=== PATIENT | female | born 1990 | race Caucasian/White ===

== ENCOUNTER → 2020-02-26 | Outpatient (CLI) | payer BC ==
[2020-02-26 06:55] LABS: BASOPHILS % (AUTO) 0.4 % (0-1); EOSINOPHILS # (AUTO) 0.1 X10'3 (0-0.9); EOSINOPHILS % (AUTO) 1.3 % (0-6); HEMOGLOBIN 12.4 g/dl (12.0-16.0); LYMPHOCYTES # (AUTO) 1.7 X10'3 (1.1-4.8); LYMPHOCYTES % (AUTO) 27.2 % (21-51); MEAN CORPUSCULAR HEMOGLOBIN 26.5 PG (27.0-31.0); MEAN CORPUSCULAR HGB CONC 32.5 g/dL (33.0-36.5); MEAN CORPUSCULAR VOLUME 81.4 FL (78-98); MEAN PLATELET VOLUME 7.9 FL (7.4-10.4); MONOCYTES # (AUTO) 0.4 X10'3 (0-0.9); MONOCYTES % (AUTO) 6.5 % (2-12); NEUTROPHILS % (AUTO) 64.6 % (42-75); PLATELET COUNT 323 X10'3 (140-440); RED BLOOD COUNT 4.67 X10'6 (4.20-5.60); RED CELL DISTRIBUTION WIDTH 14.5 % (11.5-14.5); WHITE BLOOD COUNT 6.2 X10'3 (4.5-11.0)
[2020-02-26 07:18] LABS: ALANINE AMINOTRANSFERASE 27 U/L (12-78); ALBUMIN 3.9 G/DL (3.4-5.0); ALKALINE PHOSPHATASE 62 IU/L (46-116); ANION GAP 8 (8-16); ASPARTATE AMINO TRANSFERASE 15 U/L (10-37); BILIRUBIN,TOTAL 0.3 MG/DL (0.1-1.0); BLOOD UREA NITROGEN 12 MG/DL (7-18); BUN/CREATININE RATIO 14.5 (6.6-38.0); CALCIUM 9.5 MG/DL (8.5-10.1); CHLORIDE 105 MMOL/L (99-107); CHOL/HDL RATIO 2.8 (0.00-4.99); CHOLESTEROL 169 MG/DL (0-200); CREATININE 0.83 MG/DL (0.40-0.90); GLUCOSE 112 MG/DL (70-104); HDL CHOLESTEROL 61 MG/DL (35-60); LDL CHOLESTEROL 89 MG/DL (50-100); POTASSIUM 3.8 MMOL/L (3.5-5.1); SODIUM 140 MMOL/L (135-145); TOTAL CARBON DIOXIDE 27.2 MMOL/L (24-32); TRIGLYCERIDES 95 MG/DL (20-135); eGFR 81 ML/MIN
[2020-02-26 13:59] LABS: CLARITY,URINE SLIGHTLY CLOUDY (Clear); COLOR,URINE YELLOW (Yellow); GLUCOSE, URINE NEGATIVE (Neg); KETONES,URINE TRACE mg/dl (Neg); LEUKOCYTE ESTERASE ,URINE NEGATIVE (Neg); NITRITES, URINE NEGATIVE (Neg); OCCULT BLOOD,URINE NEGATIVE (Neg); PROTEIN,URINE NEGATIVE (Neg); UROBILINOGEN,URINE 0.2 E.U/dL (0.2-1.0)
[2020-02-26 14:02] LABS: UA COLLECTION TYPE CLN CATCH MIDSTREAM
[2020-02-26 14:13] LABS: MUCUS STRANDS MANY /LPF (Neg); SQUAMOUS EPITHELIAL CELL,UR MANY /LPF (FEW); TRANSITIONAL EPI CELLS,URINE FEW /HPF
[2020-02-26 14:14] LABS: BACTERIA,URINE 2+ /HPF (Neg); RBC,URINE 0-2 /HPF (0-2); WBC,URINE 0-4 /HPF (0-4)
== END | disposition home or self-care (01) ==
LOC: LAB 05:48
PROVIDERS: ATTEND Family Medicine
DX: Z00.00 Encounter for general adult medical examination without abnormal findings (principal)
CPT/HCPCS: 36415; 80053; 80061; 81001; 84439; 84443; 85025

== ENCOUNTER 2020-03-17 09:24 | Emergency (ER) | payer BC ==
[~2020-03-17] VITALS: Ht 175.3 cm; Wt 100.0 kg
[2020-03-17 09:48] VITALS: BP 130/88
== END 2020-03-17 10:31 | disposition home or self-care (01) ==
LOC: ER 09:24
DX: R05 Cough (principal); J02.9 Acute pharyngitis, unspecified; M79.10 Myalgia, unspecified site; Z20.828 Contact with and (suspected) exposure to other viral communicable diseases; Z88.0 Allergy status to penicillin
CPT/HCPCS: 36415; 99283

== ENCOUNTER 2020-03-24 18:57 | Emergency (ER) | payer BC ==
[~2020-03-24] VITALS: Ht 175.3 cm; Wt 100.0 kg
[2020-03-24 19:13] VITALS: BP 130/88
[2020-03-24] MEDS ORDERED: ondansetron 4mg rapidly disintigrating tab PO ONE (19:25)
[2020-03-24] MEDS ORDERED: ibuprofen tablet 400 MG TABLET PO ONE (19:45)
[2020-03-24 20:15] LABS: CLARITY,URINE CLEAR (Clear); COLOR,URINE YELLOW (Yellow); GLUCOSE, URINE NEGATIVE (Neg); KETONES,URINE NEGATIVE (Neg); LEUKOCYTE ESTERASE ,URINE TRACE (Neg); NITRITES, URINE NEGATIVE (Neg); OCCULT BLOOD,URINE NEGATIVE (Neg); PROTEIN,URINE NEGATIVE (Neg); UROBILINOGEN,URINE 0.2 E.U/dL (0.2-1.0)
[2020-03-24 20:17] LABS: UA COLLECTION TYPE CLN CATCH MIDSTREAM
[2020-03-24 20:21] LABS: BACTERIA,URINE NONE SEEN /HPF (Neg); RBC,URINE NONE SEEN /HPF (0-2); SQUAMOUS EPITHELIAL CELL,UR FEW /LPF (FEW); WBC,URINE 0-4 /HPF (0-4)
[2020-03-24] MEDS ORDERED: AMOX-422 PO (20:22)
== END 2020-03-24 20:44 | disposition home or self-care (01) ==
LOC: ER 18:58
DX: J02.0 Streptococcal pharyngitis (principal); Z88.0 Allergy status to penicillin; Z88.8 Allergy status to other drugs, medicaments and biological substances
CPT/HCPCS: 81001; 87081; 87088; 87880; 99283

== ENCOUNTER 2020-07-28 17:18 | Emergency (ER) | payer BC, OTHER ==
[~2020-07-28] VITALS: Ht 177.8 cm; Wt 100.0 kg
[2020-07-28] MEDS ORDERED: AZIT500T PO (18:06)
[2020-07-28] MEDS ORDERED: ALBU6.7H9 INH (18:06)
[2020-07-28] MEDS ORDERED: PRED20TA PO (18:06)
[2020-07-28] MEDS ORDERED: BENZ-38 PO (18:06)
== END 2020-07-28 18:10 | disposition home or self-care (01) ==
LOC: ER 17:19
DX: U07.1 COVID-19 (principal); J40 Bronchitis, not specified as acute or chronic; B34.9 Viral infection, unspecified; R05 Cough; R07.89 Other chest pain; R06.02 Shortness of breath; Z88.0 Allergy status to penicillin; Z88.8 Allergy status to other drugs, medicaments and biological substances; Z79.2 Long term (current) use of antibiotics; Z79.899 Other long term (current) drug therapy
CPT/HCPCS: 71045; 99283

== ENCOUNTER 2020-08-10 08:14 | Outpatient (CLI) | payer BC ==
[~2020-08-10 08:14] MED LIST: ALBU6.7H9 INH; BENZ-38 PO
[2020-08-10 10:35] LABS: BASOPHILS % (AUTO) 0.4 % (0-1); EOSINOPHILS # (AUTO) 0.1 X10'3 (0-0.9); EOSINOPHILS % (AUTO) 1.4 % (0-6); HEMATOCRIT 37.9 % (35.0-45.0); HEMOGLOBIN 12.6 g/dl (12.0-16.0); LYMPHOCYTES # (AUTO) 1.8 X10'3 (1.1-4.8); LYMPHOCYTES % (AUTO) 26.1 % (21-51); MEAN CORPUSCULAR HEMOGLOBIN 26.8 PG (27.0-31.0); MEAN CORPUSCULAR HGB CONC 33.2 g/dL (33.0-36.5); MEAN CORPUSCULAR VOLUME 80.6 FL (78-98); MEAN PLATELET VOLUME 7.7 FL (7.4-10.4); MONOCYTES # (AUTO) 0.5 X10'3 (0-0.9); MONOCYTES % (AUTO) 7.1 % (2-12); NEUTROPHILS # (AUTO) 4.5 X10'3 (1.8-7.7); PLATELET COUNT 294 X10'3 (140-440); RED CELL DISTRIBUTION WIDTH 14.5 % (11.5-14.5)
[2020-08-10 11:06] LABS: HEMOGLOBIN A1C 5.6 % (4.5-6.2)
[2020-08-11 12:30] LABS: ESTRADIOL 37.8 pg/mL (.); FSH, SERUM 6.6 mIU/mL (.); PROLACTIN 9.1 ng/mL (4.8-23.3); RUBELLA ANTIBODIES, IGG 2.46 index (Immune >0.99)
== END 2020-08-10 23:59 | disposition home or self-care (01) ==
LOC: LAB 08:14
PROVIDERS: ATTEND Physician Assistant
DX: N92.4 Excessive bleeding in the premenopausal period (principal); N94.5 Secondary dysmenorrhea
CPT/HCPCS: 36415; 82670; 83001; 83002; 83036; 84146; 84402; 84403; 84439; 84443; 85025; 86762

== ENCOUNTER 2020-08-16 08:52 | Outpatient (CLI) | payer BC ==
[~2020-08-16 08:52] MED LIST changes: +iohexol 300mg/ml 100ml inj. ONE
== END 2020-08-16 23:59 | disposition home or self-care (01) ==
LOC: 64 CT 08:52 → EEVIPCON 08:52 → 64 CT 23:59
PROVIDERS: ATTEND Family Medicine
DX: R91.1 Solitary pulmonary nodule (principal); K76.0 Fatty (change of) liver, not elsewhere classified
CPT/HCPCS: 71260; Q9967

== ENCOUNTER 2021-01-27 10:15 | Outpatient (CLI) | payer BC ==
[~2021-01-27 10:15] MED LIST changes: -BENZ-38 PO; -iohexol 300mg/ml 100ml inj. ONE
== END 2021-01-27 23:59 | disposition home or self-care (01) ==
LOC: RAD 10:15
PROVIDERS: ATTEND Internal Medicine Critical Care Medicine
DX: R06.02 Shortness of breath (principal); R94.2 Abnormal results of pulmonary function studies
CPT/HCPCS: 78582; A9539; A9540

== ENCOUNTER 2021-03-01 10:44 | Emergency (ER) | payer BC ==
[~2021-03-01] VITALS: Ht 177.8 cm; Wt 106.4 kg
[2021-03-01] MEDS ORDERED: CEPH250T PO (13:52)
[2021-03-01] MEDS ORDERED: PRED20TA PO (13:52)
[2021-03-01] MEDS ORDERED: ALBU6.7H9 INH (13:52)
[2021-03-01 14:19] VITALS: BP 133/85
== END 2021-03-01 14:20 | disposition home or self-care (01) ==
LOC: ER 10:44 → EEVIPCON 10:44 → ER 14:20
DX: J40 Bronchitis, not specified as acute or chronic (principal); Z20.822 Contact with and (suspected) exposure to COVID-19; J02.9 Acute pharyngitis, unspecified; R05 Cough; R09.89 Other specified symptoms and signs involving the circulatory and respiratory systems; R53.83 Other fatigue; Z88.0 Allergy status to penicillin; Z88.8 Allergy status to other drugs, medicaments and biological substances; Z79.2 Long term (current) use of antibiotics; Z79.899 Other long term (current) drug therapy
CPT/HCPCS: 71045; 87081; 87635; 87880; 99284; C9803

== ENCOUNTER 2021-04-06 13:00 | Outpatient (CLI) | payer BC | END 2021-04-06 23:59 | disposition home or self-care (01) | LOC: RAD 13:00 | PROVIDERS: ATTEND Obstetrics & Gynecology | DX: N91.4 Secondary oligomenorrhea (principal) | CPT/HCPCS: 36415; 82670; 84144 ==

== ENCOUNTER 2021-04-24 10:35 | Emergency (ER) | payer BC ==
[~2021-04-24] VITALS: Ht 175.3 cm; Wt 75.0 kg
[2021-04-24] MEDS ORDERED: ONDA4TAB12 PO (10:56)
[2021-04-24 11:13] VITALS: BP 126/78
== END 2021-04-24 11:17 | disposition home or self-care (01) ==
LOC: ER 10:35
DX: R50.9 Fever, unspecified (principal); Z20.822 Contact with and (suspected) exposure to COVID-19; R11.2 Nausea with vomiting, unspecified; Z88.8 Allergy status to other drugs, medicaments and biological substances; Z79.899 Other long term (current) drug therapy
CPT/HCPCS: 99283

== ENCOUNTER 2021-10-21 18:32 | Emergency (ER) | payer BC ==
[~2021-10-21] VITALS: Ht 177.8 cm; Wt 107.2 kg
[~2021-10-21 18:32] MED LIST changes: +ONDA4TAB12 PO
[2021-10-21] MEDS ORDERED: ondansetron/PF 4mg/2ml inj IV ONE (19:55)
[2021-10-21] MEDS ORDERED: normal saline 1000ML IV soln IVB ONE (19:55)
[2021-10-21 21:15] VITALS: BP 128/90
[2021-10-21 21:46] LABS: BASOPHILS % (AUTO) 0.3 % (0-1); EOSINOPHILS # (AUTO) 0.1 X10'3 (0-0.9); EOSINOPHILS % (AUTO) 1.1 % (0-6); HEMATOCRIT 36.2 % (35.0-45.0); HEMOGLOBIN 12.1 g/dl (12.0-16.0); LYMPHOCYTES % (AUTO) 17.8 % (21-51); MEAN CORPUSCULAR HEMOGLOBIN 27.4 PG (27.0-31.0); MEAN CORPUSCULAR HGB CONC 33.5 g/dL (33.0-36.5); MEAN CORPUSCULAR VOLUME 81.8 FL (78-98); MEAN PLATELET VOLUME 8.2 FL (7.4-10.4); MONOCYTES # (AUTO) 0.6 X10'3 (0-0.9); MONOCYTES % (AUTO) 5.8 % (2-12); NEUTROPHILS # (AUTO) 8.2 X10'3 (1.8-7.7); PLATELET COUNT 264 X10'3 (140-440); RED BLOOD COUNT 4.42 X10'6 (4.20-5.60); RED CELL DISTRIBUTION WIDTH 14.8 % (11.5-14.5)
[2021-10-21 22:06] LABS: ALBUMIN 3.5 G/DL (3.4-5.0); ANION GAP 10 (8-16); BILIRUBIN,TOTAL 0.3 MG/DL (0.1-1.0); BLOOD UREA NITROGEN 11 MG/DL (7-18); BUN/CREATININE RATIO 13.3 (6.6-38.0); CALCIUM 8.3 MG/DL (8.5-10.1); CHLORIDE 106 MMOL/L (99-107); CREATININE 0.83 MG/DL (0.40-0.90); GLUCOSE 93 MG/DL (70-104); POTASSIUM 3.6 MMOL/L (3.5-5.1); SODIUM 142 MMOL/L (135-145); TOTAL CARBON DIOXIDE 25.7 MMOL/L (24-32); TOTAL PROTEIN 6.9 G/DL (6.4-8.2); eGFR 80 ML/MIN
[2021-10-21 22:07] LABS: ALANINE AMINOTRANSFERASE 82 U/L (12-78); ALKALINE PHOSPHATASE 75 IU/L (46-116); ASPARTATE AMINO TRANSFERASE 22 U/L (10-37)
[2021-10-21 22:35] LABS: BETA HCG,QUANTITATIVE 43452 mIU/ml
[2021-10-21] MEDS ORDERED: DOXY1TAB3 PO (22:47)
[2021-10-21] MEDS ORDERED: ONDA4TAB12 PO (22:47)
[2021-10-21 22:51] LABS: CLARITY,URINE SLIGHTLY CLOUDY (Clear); COLOR,URINE YELLOW (Yellow); GLUCOSE, URINE NEGATIVE (Neg); KETONES,URINE NEGATIVE (Neg); LEUKOCYTE ESTERASE ,URINE NEGATIVE (Neg); NITRITES, URINE NEGATIVE (Neg); OCCULT BLOOD,URINE TRACE-INTACT (Neg); PH,URINE 5.5 (4.8-8.0); PROTEIN,URINE NEGATIVE (Neg); UROBILINOGEN,URINE 0.2 E.U/dL (0.2-1.0)
[2021-10-21 22:57] LABS: UA COLLECTION TYPE VOIDED
[2021-10-21 22:59] LABS: BACTERIA,URINE 1+ /HPF (Neg); MUCUS STRANDS MODERATE /LPF (Neg); SQUAMOUS EPITHELIAL CELL,UR FEW /LPF (FEW); STARCH,URINE FEW /HPF (NEGATIVE); WBC,URINE NONE SEEN /HPF (0-4)
== END 2021-10-21 23:13 | disposition home or self-care (01) ==
LOC: ER 18:32 → EEVIPCON 18:32 → ER 23:13
DX: O99.611 Diseases of the digestive system complicating pregnancy, first trimester (principal); K29.00 Acute gastritis without bleeding; O21.9 Vomiting of pregnancy, unspecified; O34.11 Maternal care for benign tumor of corpus uteri, first trimester; Z88.0 Allergy status to penicillin; Z88.8 Allergy status to other drugs, medicaments and biological substances; Z79.899 Other long term (current) drug therapy; Z3A.01 Less than 8 weeks gestation of pregnancy
CPT/HCPCS: 36415; 76802; 76830; 80053; 81001; 84702; 85025; 85610; 86885; 86900; 86901; 99284; J7030

== ENCOUNTER 2021-10-24 07:33 | Emergency (ER) | payer BC ==
[~2021-10-24] VITALS: Ht 177.8 cm; Wt 105.9 kg
[~2021-10-24 07:33] MED LIST changes: +DOXY1TAB3 PO
[2021-10-24 07:40] VITALS: BP 128/71
--- NOTE | 2021-10-24 07:56 | NUR ---
Patient reports she was told by ER provider last week to return for beta HCG today.
[2021-10-24] MEDS ORDERED: metoclopramide 5 mg/ml inj IV ONE (08:20)
[2021-10-24] MEDS ORDERED: ringers solution, lacted 1,000 ML IV ONE (08:20)
[2021-10-24 08:46] LABS: BASOPHILS % (AUTO) 0.3 % (0-1); EOSINOPHILS # (AUTO) 0.1 X10'3 (0-0.9); EOSINOPHILS % (AUTO) 1.2 % (0-6); HEMATOCRIT 40.4 % (35.0-45.0); HEMOGLOBIN 13.7 g/dl (12.0-16.0); LYMPHOCYTES # (AUTO) 1.9 X10'3 (1.1-4.8); MEAN CORPUSCULAR HEMOGLOBIN 27.8 PG (27.0-31.0); MEAN CORPUSCULAR HGB CONC 33.9 g/dL (33.0-36.5); MEAN PLATELET VOLUME 7.9 FL (7.4-10.4); MONOCYTES # (AUTO) 0.6 X10'3 (0-0.9); MONOCYTES % (AUTO) 5.9 % (2-12); NEUTROPHILS # (AUTO) 7.3 X10'3 (1.8-7.7); NEUTROPHILS % (AUTO) 73.6 % (42-75); PLATELET COUNT 273 X10'3 (140-440); RED BLOOD COUNT 4.93 X10'6 (4.20-5.60); RED CELL DISTRIBUTION WIDTH 14.6 % (11.5-14.5)
--- NOTE | 2021-10-24 09:13 | NUR ---
Patient not in room; IV on counter in room.
[2021-10-24 11:49] LABS: ALANINE AMINOTRANSFERASE 89 U/L (12-78); ALBUMIN 3.7 G/DL (3.4-5.0); ALKALINE PHOSPHATASE 89 IU/L (46-116); ANION GAP 11 (8-16); ASPARTATE AMINO TRANSFERASE 33 U/L (10-37); BILIRUBIN,TOTAL 0.6 MG/DL (0.1-1.0); BLOOD UREA NITROGEN 10 MG/DL (7-18); BUN/CREATININE RATIO 13.2 (6.6-38.0); CHLORIDE 102 MMOL/L (99-107); CREATININE 0.76 MG/DL (0.40-0.90); GLUCOSE 95 MG/DL (70-104); SODIUM 138 MMOL/L (135-145); TOTAL CARBON DIOXIDE 24.9 MMOL/L (24-32); TOTAL PROTEIN 7.4 G/DL (6.4-8.2); eGFR 89 ML/MIN
[2021-10-24 12:19] LABS: BETA HCG,QUANTITATIVE 80633 mIU/ml
== END 2021-10-24 09:00 | disposition left against medical advice (07) ==
LOC: ER 07:34 → EEVIPCON 07:34 → ER 09:00
DX: O46.8X1 Other antepartum hemorrhage, first trimester (principal); O26.891 Other specified pregnancy related conditions, first trimester; R11.2 Nausea with vomiting, unspecified
CPT/HCPCS: 36415; 80053; 84702; 85025; 96361; 96374; 99283; J2765; J7120

== ENCOUNTER 2023-11-07 05:33 | Emergency (ER) | payer BC ==
[~2023-11-07] VITALS: Ht 177.8 cm; Wt 117.7 kg
[~2023-11-07 05:33] MED LIST changes: -ALBU6.7H9 INH
[2023-11-07] MEDS ORDERED: ketorolac trometh. 30mg/ml inj. IV ONE (06:45)
[2023-11-07 07:23] LABS: BASOPHILS % (AUTO) 0.4 % (0-1); EOSINOPHILS # (AUTO) 0.1 X10'3 (0-0.9); EOSINOPHILS % (AUTO) 1.3 % (0-6); HEMATOCRIT 38.9 % (35.0-45.0); HEMOGLOBIN 13.2 g/dl (12.0-16.0); LYMPHOCYTES # (AUTO) 1.1 X10'3 (1.1-4.8); LYMPHOCYTES % (AUTO) 15.3 % (21-51); MEAN CORPUSCULAR HEMOGLOBIN 27.3 PG (27.0-31.0); MEAN CORPUSCULAR HGB CONC 33.8 g/dL (33.0-36.5); MEAN CORPUSCULAR VOLUME 80.8 FL (78-98); MEAN PLATELET VOLUME 7.7 FL (7.4-10.4); MONOCYTES # (AUTO) 0.6 X10'3 (0-0.9); MONOCYTES % (AUTO) 7.7 % (2-12); NEUTROPHILS # (AUTO) 5.5 X10'3 (1.8-7.7); NEUTROPHILS % (AUTO) 75.3 % (42-75); PLATELET COUNT 279 X10'3 (140-440); RED BLOOD COUNT 4.81 X10'6 (4.20-5.60); RED CELL DISTRIBUTION WIDTH 14.4 % (11.5-14.5); WHITE BLOOD COUNT 7.3 X10'3 (4.5-11.0)
[2023-11-07 07:32] LABS: D-DIMER 0.81 MG/L FEU (0-0.50)
[2023-11-07 07:33] LABS: ALANINE AMINOTRANSFERASE 28 U/L (12-78); ALBUMIN 3.5 G/DL (3.4-5.0); ALBUMIN/GLOBULIN RATIO 0.9 (1.1-1.5); ALKALINE PHOSPHATASE 95 IU/L (46-116); ANION GAP 7 (8-16); ASPARTATE AMINO TRANSFERASE 18 U/L (10-37); BILIRUBIN,TOTAL 0.3 MG/DL (0.1-1.0); BLOOD UREA NITROGEN 15 MG/DL (7-18); BUN/CREATININE RATIO 16.9 (10.0-20.0); CALCIUM 8.1 MG/DL (8.5-10.1); CHLORIDE 105 MMOL/L (99-107); CREATININE 0.89 MG/DL (0.40-0.90); GLUCOSE 106 MG/DL (70-104); POTASSIUM 4.1 MMOL/L (3.5-5.1); SODIUM 139 MMOL/L (135-145); TOTAL CARBON DIOXIDE 27.1 MMOL/L (24-32); TOTAL PROTEIN 7.6 G/DL (6.4-8.2); eCRCL 97 ML/MIN; eGFR 73 ML/MIN
[2023-11-07 07:40] LABS: PRO BRAIN NATRIURETIC PEPTIDE < 30 PG/ML (0-125)
[2023-11-07 08:20] LABS: URINE HCG NEGATIVE (NEG)
[2023-11-07] MEDS ORDERED: iohexol 350MG/ML 100ml bottle IV ONE (08:22)
[2023-11-07] MEDS: ketorolac trometh. 30mg/ml inj. IV ONE (09:02)
[2023-11-07 09:50] VITALS: BP 118/83; PULSE 80; RESP 18; TEMP 98; O2SAT 95
== END 2023-11-07 09:52 | disposition home or self-care (01) ==
LOC: EEVIPCON 05:34 → ER 05:34
DX: R07.89 Other chest pain (principal); Z88.0 Allergy status to penicillin; Z88.8 Allergy status to other drugs, medicaments and biological substances; Z79.899 Other long term (current) drug therapy
CPT/HCPCS: 36415; 71045; 71275; 80053; 81025; 83880; 84484; 85025; 85379; 93005; 96374; 99285; J1885; J3490; Q9967

== ENCOUNTER 2023-11-20 10:03 | Outpatient (CLI) | payer BC ==
[2023-11-20 10:54] LABS: BASOPHILS % (AUTO) 0.3 % (0-1); EOSINOPHILS # (AUTO) 0.2 X10'3 (0-0.9); EOSINOPHILS % (AUTO) 1.6 % (0-6); HEMATOCRIT 40.8 % (35.0-45.0); HEMOGLOBIN 13.6 g/dl (12.0-16.0); LYMPHOCYTES # (AUTO) 1.9 X10'3 (1.1-4.8); LYMPHOCYTES % (AUTO) 20.4 % (21-51); MEAN CORPUSCULAR HGB CONC 33.4 g/dL (33.0-36.5); MEAN CORPUSCULAR VOLUME 81.1 FL (78-98); MEAN PLATELET VOLUME 7.8 FL (7.4-10.4); MONOCYTES # (AUTO) 0.5 X10'3 (0-0.9); MONOCYTES % (AUTO) 5.3 % (2-12); NEUTROPHILS # (AUTO) 6.8 X10'3 (1.8-7.7); NEUTROPHILS % (AUTO) 72.4 % (42-75); PLATELET COUNT 307 X10'3 (140-440); RED BLOOD COUNT 5.03 X10'6 (4.20-5.60); RED CELL DISTRIBUTION WIDTH 14.4 % (11.5-14.5); WHITE BLOOD COUNT 9.4 X10'3 (4.5-11.0)
== END 2023-11-20 23:59 | disposition home or self-care (01) ==
LOC: LAB 10:03
PROVIDERS: ATTEND Obstetrics & Gynecology
DX: D21.9 Benign neoplasm of connective and other soft tissue, unspecified (principal)
CPT/HCPCS: 36415; 85025; 86885; 86900; 86901

== ENCOUNTER 2024-02-24 03:48 | Emergency (ER) | payer BC ==
[~2024-02-24] VITALS: Ht 177.8 cm; Wt 107.0 kg
[2024-02-24 03:54] VITALS: BP 130/84; PULSE 109; O2SAT 95
[2024-02-24] MEDS ORDERED: NO HOME MEDS (04:06)
[2024-02-24 04:22] LABS: STREP A SCREEN POSITIVE (Neg)
[2024-02-24] MEDS: acetaminophen 325mg tablet PO ONE (04:22)
[2024-02-24] MEDS: LIDOcaine 2% Viscous 15ml cup MM ONE (04:23)
[2024-02-24 04:28] VITALS: RESP 18
[2024-02-24] MEDS: ketorolac trometh. 30mg/ml inj. IM ONE (04:28)
[2024-02-24] MEDS: clindamycin 150mg capsule PO ONE (04:39)
[2024-02-24] MEDS: dexamethasone 4mg tablet PO ONE (04:39)
[2024-02-24] MEDS ORDERED: PRE5T PO (04:41)
[2024-02-24] MEDS ORDERED: CLIN150C2 PO (04:41)
[2024-02-24] MEDS ORDERED: LIDO15SO9 PO (04:41)
[2024-02-24 04:46] VITALS: TEMP 98.8
== END 2024-02-24 04:45 | disposition home or self-care (01) ==
LOC: ER 03:48
DX: J02.0 Streptococcal pharyngitis (principal); Z88.0 Allergy status to penicillin; Z88.8 Allergy status to other drugs, medicaments and biological substances
CPT/HCPCS: 87880; 96372; 99284; J1885

== ENCOUNTER 2024-03-05 15:44 | Outpatient (CLI) | payer BC ==
[~2024-03-05 15:44] MED LIST changes: +CLIN150C2 PO; -DOXY1TAB3 PO; +LIDO15SO9 PO; +NO HOME MEDS; -ONDA4TAB12 PO; +PRE5T PO
[2024-03-05 16:34] LABS: BASOPHILS % (AUTO) 0.4 % (0-1); EOSINOPHILS # (AUTO) 0.1 X10'3 (0-0.9); EOSINOPHILS % (AUTO) 1.1 % (0-6); HEMATOCRIT 38.3 % (35.0-45.0); HEMOGLOBIN 12.6 g/dl (12.0-16.0); LYMPHOCYTES # (AUTO) 1.9 X10'3 (1.1-4.8); LYMPHOCYTES % (AUTO) 20.4 % (21-51); MEAN CORPUSCULAR HEMOGLOBIN 25.8 PG (27.0-31.0); MEAN CORPUSCULAR HGB CONC 32.8 g/dL (33.0-36.5); MEAN CORPUSCULAR VOLUME 78.8 FL (78-98); MEAN PLATELET VOLUME 8.2 FL (7.4-10.4); MONOCYTES # (AUTO) 0.5 X10'3 (0-0.9); MONOCYTES % (AUTO) 5.8 % (2-12); NEUTROPHILS # (AUTO) 6.8 X10'3 (1.8-7.7); NEUTROPHILS % (AUTO) 72.3 % (42-75); PLATELET COUNT 298 X10'3 (140-440); RED BLOOD COUNT 4.86 X10'6 (4.20-5.60); RED CELL DISTRIBUTION WIDTH 15.2 % (11.5-14.5); WHITE BLOOD COUNT 9.4 X10'3 (4.5-11.0)
[2024-03-05 16:42] LABS: D-DIMER 0.33 MG/L FEU (0-0.50)
[2024-03-05 16:52] LABS: HEMOGLOBIN A1C 5.4 % (4.5-6.2)
[2024-03-05 16:54] LABS: ALANINE AMINOTRANSFERASE 104 U/L (12-78); ALBUMIN 3.5 G/DL (3.4-5.0); ALBUMIN/GLOBULIN RATIO 0.8 (1.1-1.5); ALKALINE PHOSPHATASE 98 IU/L (46-116); ANION GAP 10 (8-16); ASPARTATE AMINO TRANSFERASE 35 U/L (10-37); BILIRUBIN,TOTAL 0.5 MG/DL (0.1-1.0); BLOOD UREA NITROGEN 14 MG/DL (7-18); BUN/CREATININE RATIO 16.1 (10.0-20.0); CALCIUM 9.1 MG/DL (8.5-10.1); CHLORIDE 102 MMOL/L (99-107); CREATININE 0.87 MG/DL (0.40-0.90); GLUCOSE 90 MG/DL (70-104); POTASSIUM 3.7 MMOL/L (3.5-5.1); SODIUM 139 MMOL/L (135-145); THYROID STIMULATING HORMONE 2.35 ulU/ml (0.34-4.50); TOTAL CARBON DIOXIDE 27.1 MMOL/L (24-32); TOTAL PROTEIN 7.9 G/DL (6.4-8.2); eGFR 75 ML/MIN
== END 2024-03-05 23:59 | disposition home or self-care (01) ==
LOC: RAD 15:44
PROVIDERS: ATTEND Nurse Practitioner
DX: D21.9 Benign neoplasm of connective and other soft tissue, unspecified (principal); R63.5 Abnormal weight gain
CPT/HCPCS: 36415; 80053; 82378; 83036; 84443; 85025; 85379; 86885; 86900; 86901

== ENCOUNTER 2024-09-30 14:56 | Outpatient (CLI) | payer BC ==
[~2024-09-30 14:56] MED LIST changes: -CLIN150C2 PO
[2024-09-30 17:48] LABS: BASOPHILS % (AUTO) 0.3 % (0-1); EOSINOPHILS # (AUTO) 0.1 X10'3 (0-0.9); EOSINOPHILS % (AUTO) 1.6 % (0-6); HEMATOCRIT 37.4 % (35.0-45.0); HEMOGLOBIN 12.6 g/dl (12.0-16.0); LYMPHOCYTES # (AUTO) 2.2 X10'3 (1.1-4.8); LYMPHOCYTES % (AUTO) 29.2 % (21-51); MEAN CORPUSCULAR HEMOGLOBIN 27.7 PG (27.0-31.0); MEAN CORPUSCULAR HGB CONC 33.8 g/dL (33.0-36.5); MEAN CORPUSCULAR VOLUME 82.2 FL (78-98); MONOCYTES # (AUTO) 0.5 X10'3 (0-0.9); MONOCYTES % (AUTO) 6.8 % (2-12); NEUTROPHILS # (AUTO) 4.7 X10'3 (1.8-7.7); NEUTROPHILS % (AUTO) 62.1 % (42-75); PLATELET COUNT 265 X10'3 (140-440); RED BLOOD COUNT 4.55 X10'6 (4.20-5.60); RED CELL DISTRIBUTION WIDTH 14.6 % (11.5-14.5); WHITE BLOOD COUNT 7.6 X10'3 (4.5-11.0)
[2024-09-30 18:09] LABS: ALANINE AMINOTRANSFERASE 49 U/L (12-78); ALBUMIN 3.8 G/DL (3.4-5.0); ALBUMIN/GLOBULIN RATIO 0.8 (1.1-1.5); ALKALINE PHOSPHATASE 72 IU/L (46-116); ANION GAP 7 (8-16); ASPARTATE AMINO TRANSFERASE 18 U/L (10-37); BILIRUBIN,TOTAL 0.5 MG/DL (0.1-1.0); BLOOD UREA NITROGEN 17 MG/DL (7-18); BUN/CREATININE RATIO 22.7 (10.0-20.0); CALCIUM 9.1 MG/DL (8.5-10.1); CHLORIDE 100 MMOL/L (99-107); CHOL/HDL RATIO 2.7 (0.00-4.99); CHOLESTEROL 161 MG/DL (0-200); CREATININE 0.75 MG/DL (0.40-0.90); GLUCOSE 75 MG/DL (70-104); HDL CHOLESTEROL 59 MG/DL (35-60); HEMOGLOBIN A1C 5.3 % (4.5-6.2); LDL CHOLESTEROL 85 MG/DL (50-100); POTASSIUM 3.6 MMOL/L (3.5-5.1); SODIUM 137 MMOL/L (135-145); THYROID STIMULATING HORMONE 1.83 ulU/ml (0.34-4.50); TOTAL CARBON DIOXIDE 30.1 MMOL/L (24-32); TOTAL PROTEIN 8.4 G/DL (6.4-8.2); eGFR 88 ML/MIN
[2024-09-30 18:26] LABS: TRIGLYCERIDES 57 MG/DL (20-135)
== END 2024-09-30 23:59 | disposition home or self-care (01) ==
LOC: RAD 14:56
PROVIDERS: ATTEND Nurse Practitioner
DX: R53.83 Other fatigue (principal); N92.1 Excessive and frequent menstruation with irregular cycle; F41.9 Anxiety disorder, unspecified
CPT/HCPCS: 36415; 80053; 80061; 83036; 84443; 85025

== ENCOUNTER 2024-12-13 10:40 | Emergency (ER) | payer BC ==
[~2024-12-13] VITALS: Ht 177.8 cm; Wt 97.7 kg
[2024-12-13 10:56] VITALS: BP 143/85; PULSE 88; RESP 16; O2SAT 97
[2024-12-13] MEDS ORDERED: AMOX-580 PO (12:08)
[2024-12-13 12:14] VITALS: TEMP 99
== END 2024-12-13 12:00 | disposition home or self-care (01) ==
LOC: ER 10:41
DX: J32.9 Chronic sinusitis, unspecified (principal); Z88.0 Allergy status to penicillin; Z88.1 Allergy status to other antibiotic agents
CPT/HCPCS: 99283

== ENCOUNTER 2025-04-22 18:59 | Emergency (ER) | payer BC ==
[~2025-04-22] VITALS: Ht 177.8 cm; Wt 109.1 kg
[2025-04-22 19:07] VITALS: BP 155/74; TEMP 98.6
--- NOTE | 2025-04-22 19:26 | RADIOLOGY REPORT ---
EXAMINATION: DI CHEST,TWO VIEWS CLINICAL HISTORY: COUGH X 3 WEEKS COMPARISON: DI CHEST,SINGLE VIEW on DOS: 11/07/23 FINDINGS: Central interstitial prominence. No lobar consolidation identified. No sizable pleural effusion or pn eumothorax. The cardiomediastinal silhouette appears within normal limits. IMPRESSION: Central interstitial prominence is relatively nonspecific but can be seen with edema, reactive airway changes as well as atypical/viral infection. Please correlate clinically.
--- NOTE | 2025-04-22 19:59 | Physician Documentation ---
History of Present Illness ~ Chief Complaint: Cough Stated Complaint: COUGH Time Seen by MD: 19:21 Primary Medical Doctor: AUTUMN HPI 34-year-old female presents to the ED after having three weeks of cold cough and congestion. States that she feels as though she is drowning. Denies any history of CHF. States she has coughing up discolored sputum. Denies any fever however. She has tried Mucinex and drinking lots of water along with ibuprofen but has persistent symptoms Day of Onset: Apr 22, 2025 Medication Reconciliation Allergies: Coded Allergies: Penicillins (Verified Allergy, Unknown, 04/22/25) nitrofurantoin (Verified Allergy, Unknown, MIGRAINE, 04/22/25) Scheduled Azithromycin (Azithromycin), 1 TAB PO UD Benzonatate* (Benzonatate*), 1 CAP PO Q8H Lidocaine HCl (Lidocaine HCl Viscous), 5 ML PO Q8H Prednisone (predniSONE tablet), 1 TAB PO DAILY Scheduled PRN albuterol inhaler (Pro-Air Inhaler), 2 PUFFS INH Q4HPRN PRN for wheezing Miscellaneous Medications Home Med List (No Home Medications), (Reported) Past Medical History Past Medical History: No Pertinent History Past Surgical History: noncontributory Alcohol Use: None Drug Use: none Lives In: Home Occupation: employed Review of Systems All Other Systems at this time: Reviewed and Negative ROS As stated above in the HPI, otherwise all systems are reviewed and negative. Physical Exam Vital Signs: Temperature: 98.6, Source: Temporal, Heart Rate: 97, Respiratory Rate: 18, BP: 155/74, Pulse Oximetry: 100, Weight: 109.090 Oxygen Flow Rate: 0 Physical Exam General: Alert, no apparent distress. Respiratory: Coarse lung sounds with mild wheezes Chest: No accessory muscle use. Extremities: Normal range of motion, no deformity. Neurologic: Oriented x4. Psychiatric: Normal mood and affect. Skin: Normal color, warm and dry. No edema, no ecchymosis. Progress Results/Orders Results/Orders Orders - HASEEB RHODES NP Svn Treatment (04/22/25 ) Completed Orders - HASEEB RHODES [facility] [address] Ipratropium/Albuterol Nebule (Ipratrop/A (04/22/25 20:05) Dexamethasone Tablet (Decadron Tablet) (04/22/25 20:05) Dexamethasone 6mg Tablet (Dexamethasone (04/22/25 20:05) Medications Received in ER Medications (Trade) Dose Ordered Sig/Sanjeev Route PRN Reason Start Time Stop Time Status Last Admin Dose Admin (ipratrop/ albuterol 0.5-3(2.5) MG/3ml nebule) 3 ml ONCE ONCE NEB 04/22/25 20:05 04/22/25 20:06 DC 04/22/25 20:33 3 ML (Decadron tablet) 4 mg ONCE ONCE PO 04/22/25 20:05 04/22/25 20:06 DC 04/22/25 20:17 4 MG (Dexamethasone 6mg tablet) 6 mg ONCE ONCE PO 04/22/25 20:05 04/22/25 20:06 DC 04/22/25 20:17 6 MG Vital Signs 04/22/25 04/22/25 04/22/25 04/22/25 19:07 20:36 20:37 20:41 Temp 98.6 Pulse 97 84 71 Resp 18 18 18 18 B/P (MAP) 155/74 Pulse Ox 100 96 100 O2 Delivery Room Air* Room Air* O2 Flow Rate 0 0 0 FiO2 21 21 Medical Decision Making Findings This patient presents with ongoing persistent bronchitis like symptoms I am going to start her on antibiotics and send her home with a inhaler and some Tessalon Perles to help with her symptoms. Differential Dx:Considerations: Include: Allergic rhinitis, Influenza, Otitis media, Peritonsillar abscess, Pharyngitis-Diphtheria, Pharyngitis-Streptoccal, Pharyngitis-Viral, Pneumonia, Pnuemonitis, Sinusitis, URI, Other Departure Disposition: 01 HOME / SELF CARE / HOMELESS Impression: Primary Impression: Acute bronchitis Condition: Stable Discharge Instructions: Upper Respiratory Infection, Adult Referrals: NO PRIMARY CARE PROVIDER (PCP) Prescriptions albuterol inhaler (Pro-Air Inhaler) 8.5 Gm Inhaler 2 PUFFS INH Q4HPRN PRN for wheezing for 30 Days, #18 GM Prov: HASEEB RHODES [address] 04/22/25 Azithromycin (Azithromycin) 250 Mg Tablet 1 TAB PO UD for 5 Days, #6 TAB 2 the first day followed by 1 for days 2-5 Prov: HASEEB RHODES [address] 04/22/25 Benzonatate* (Benzonatate*) 100 Mg Capsule 1 CAP PO Q8H for cough for 10 Days, #30 CAP Prov: HASEEB RHODES [address] 04/22/25 Signature Scribe Signature: f Attestation: Scribed for Haseeb Rhodes Np by Haseeb Park NP . 04/22/25 23:06 HASEEB RHODES NP Apr 22, 2025 19:59
[2025-04-22] MEDS ORDERED: BENZ-38 PO (20:00)
[2025-04-22] MEDS ORDERED: ALBU8HFA INH (20:00)
[2025-04-22] MEDS ORDERED: AZIT250T27 PO (20:00)
[2025-04-22] MEDS ORDERED: dexamethasone sod phosphate 10mg/ml inj PO STA (20:01)
[2025-04-22] MEDS: DEXAMETHASONE 6 MG TABLET PO ONE (20:17)
[2025-04-22] MEDS: ipratropium/albuterol 3ml nebule NEB ONE (20:33)
[2025-04-22 20:36] VITALS: PULSE 84; RESP 18; O2SAT 96
[2025-04-22 20:41] VITALS: PULSE 71; RESP 18; O2SAT 100
== END 2025-04-22 20:53 | disposition home or self-care (01) ==
LOC: ER 18:59
DX: J20.9 Acute bronchitis, unspecified (principal); Z88.0 Allergy status to penicillin; Z88.8 Allergy status to other drugs, medicaments and biological substances; Z79.899 Other long term (current) drug therapy
CPT/HCPCS: 71046; 94640; 99283; J8540